=== PATIENT | female | born 1975 | race Caucasian/White ===

== ENCOUNTER → 2020-04-18 12:55 | Outpatient (CLI) | payer OTHER, SELFPAY ==
--- NOTE | ~2020-04-18 | MM_ITS ---
EXAMINATION: MM screening sukhwinder BI w joan HISTORY: Screening mammogram TECHNIQUE: Craniocaudal and mediolateral oblique 3-D tomosynthesis images were obtained and synthetic 2-D images were generated. CAD analysis was submitted and interpreted. COMPARISON: No prior mammogram is available for comparison at this institution. BREAST PARENCHYMAL COMPOSITION: There are scattered areas of fibroglandular density. FINDINGS: There is a cluster grouped microcalcifications in the posterior upper inner left breast. Di agnostic left mammogram with magnification views is recommended. Otherwise there is no evidence of suspicious mass, calcification, or architectural distortion to sugg est malignancy in either breast. IMPRESSION: 1. Cluster grouped microcalcifications in posterior upper inner left breast 2. Diagnostic left mammogram with magnification views is recommended. BI-RADS Category 0: Incomplete: Needs additional imaging evaluation. Reviewed, dictated and finalized at location A. NCIAL ADMINISTRATION OFFICER
== END ==
PROVIDERS: Visit Provider Nurse Practitioner
DX: Z12.31 Encounter for screening mammogram for malignant neoplasm of breast (principal); R92.8 Other abnormal and inconclusive findings on diagnostic imaging of breast
CPT/HCPCS: 77063; 77067

== ENCOUNTER → 2020-05-16 08:00 | Outpatient (CLI) | payer OTHER, SELFPAY ==
--- NOTE | ~2020-05-16 | MM_ITS ---
EXAMINATION: MM diagnostic mammo unilat LT HISTORY: Cluster of grouped microcalcifications in posterior upper inner left breast on 04/18/2020 scr eening mammogram TECHNIQUE: ML view. Magnification views in 3 projections.. CAD analysis was submitted and interpreted . COMPARISON: 04/18/2020 bilateral digital screening mammogram FINDINGS: A cluster grouped round benign microcalcifications is noted posteriorly in the upper inner quadrant of left breast. Occasional additional benign solitary calcifications. No malignant calcifica tion is evident. IMPRESSION: 1. No mammographic evidence of malignancy 2. Routine annual mammographic screening is recommended. BI-RADS Category 2: Benign finding(s). Reviewed, dictated and finalized at location A.
== END ==
PROVIDERS: Visit Provider Obstetrics & Gynecology Gynecology
DX: R92.8 Other abnormal and inconclusive findings on diagnostic imaging of breast (principal)
CPT/HCPCS: 77065

== ENCOUNTER 2022-01-20 08:15 | Emergency (ER) | payer BC, SELFPAY ==
--- NOTE | ~2022-01-20 | XR_ITS ---
EXAMINATION: XR knee RT min 4V DATE: 01/20/2022 08:38 INDICATION: Right knee pain. TECHNIQUE: 4 views of right knee were obtained. COMPARISON: None. FINDINGS: Bone alignment is normal. No fracture. There is mild tricompartmental osteoarthritis charac terized by tiny osteophytes. No joint space narrowing. No knee joint effusion. IMPRESSION: 1. Mild right knee osteoarthritis. Reviewed, dictated and finalized at location A. M INSTALLATION TECHNICIAN
--- NOTE | 2022-01-20 08:17 | ED.SKABFB ---
HPI - Skin/Abscess/Foreign Bdy General Chief complaint: Extremity Problem,Nontraumatic Stated complaint: KNOT UNDER R KNEE Time Seen by Provider: 01/20/22 08:17 Source: patient and RN notes reviewed History of Present Illness HPI narrative: Patient is a 46-year-old female presents to urgent care with complaints of a knot under the right knee. Patient states that she noticed on Wednesday and it has became more painful and tender to the touch for the last 24 hours. Patient states that it kept her up all night. Denies any injuries, or recent falls. Patient states that pain is exacerbated with stairs or any weight-bearing movements. Patient did take Advil and use ice to the area last night. No other acute complaints. No acute distress noted. Patient aware of the plan of care. Some parts of this dictation were generated by voice recognition software and may contain typographical and/or grammatical inaccuracies. Related Data Home Medications Medication Instructions Recorded Confirmed norethindrone 1.5 mg-ethinyl 1 tablet PO DAILY 01/20/22 01/20/22 estradiol 30 mcg(21)/iron 75 mg(7) tablet ( FE .07/07 (28)) Allergies Allergy/AdvReac Type Severity Reaction Status Date / Time No Known Allergies Allergy Unverified 01/20/22 08:24 Review of Systems Review of Systems: CONSTITUTIONAL: Denies fever, chills, or sweats. EYES: Denies visual changes, redness, or discharge. ENT: Denies rhinorrhea, congestion, sore throat, or otalgia. CARDIOVASCULAR: Denies chest pain, palpitations, or edema. RESPIRATORY: Denies cough or dyspnea. GASTROINTESTINAL: Denies abdominal pain, nausea, vomiting, or diarrhea. GENITOURINARY: Denies dysuria or hematuria. SKIN: Denies rash or itching. MUSCULOSKELETAL: Reports of a painful ?knot? under the right knee NEUROLOGIC: Denies headache, numbness, or weakness. All other systems reviewed are negative, except as documented in HPI. PMFSH Comments At the time of my signature, I reviewed and agree with the nursing past medical, surgical, social, and family history. There is no relevant family history pertinent to the patient complaint. Exam Narrative: GENERAL: This is a well-nourished, well-developed patient, in no apparent distress. HEAD: normocephalic, atraumatic. EYES: PERRL. Sclera clear/white. Vision is grossly intact. EARS: External ears normal NOSE: External nose normal with no obvious nasal discharge, nares without redness, no rhinorrhea. THROAT: Mucous membranes moist NECK: Neck supple SKIN: warm, intact with no suspicious lesions or rash, good texture and turgor. NEURO: awake, alert, and oriented to person, place and time. There were no obvious focal neurologic abnormalities. EXTREMITIES: Positive strong right pedal pulse with capillary refill less than 2 seconds. Approximately 2 cm firm nodule/soft tissue swelling noted to the tibial tuberosity region with moderate tenderness without ecchymosis or erythema. Pain exacerbated on weight-bearing and adduction/abduction of the right lower extremity Course Course Level of Care: Express Care Visit Vital Signs Vital signs: Vital Signs Temperature 99.3 F 01/20/22 08:21 Pulse Rate 82 01/20/22 08:21 Respiratory Rate 16 01/20/22 08:21 Blood Pressure 150/83 H 01/20/22 08:21 Pulse Oximetry 100 01/20/22 08:21 Oxygen Delivery Room Air 01/20/22 08:21 Temperature 99.3 F 01/20/22 08:25 Pulse Rate 82 01/20/22 08:25 Respiratory Rate 16 01/20/22 08:25 Blood Pressure 150/83 H 01/20/22 08:25 Pulse Oximetry 100 01/20/22 08:25 Oxygen Delivery Room Air 01/20/22 08:25 Reviewed- Patient is informed that they may have pre-hypertension or hypertension based on a blood pressure reading in the department. I recommend the patient call the primary care provider listed on their discharge instructions or a physician of their choice this week to arrange follow-up for further evaluation of possible pre-hypertension or hypert
[2022-01-20 08:21] VITALS: BP 150/83; PULSE 82; RESP 16; TEMP 37.4; O2SAT 100
[2022-01-20 08:25] VITALS: BP 150/83; PULSE 82; RESP 16; TEMP 37.4; O2SAT 100
== END 2022-01-20 09:25 | disposition home or self-care (01) ==
PROVIDERS: Emergency Provider Nurse Practitioner Family
DX: M17.11 Unilateral primary osteoarthritis, right knee (principal)
CPT/HCPCS: 73564; 99203; G0463

== ENCOUNTER 2024-05-15 15:07 | Emergency (ER) | payer OTHER, SELFPAY ==
[2024-05-15 15:18] VITALS: BP 146/95; PULSE 79; RESP 16; TEMP 37.1; O2SAT 99
--- NOTE | 2024-05-15 15:45 | ED.URI ---
HPI - URI/Sore Throat General Chief Complaint: Upper Respiratory Infection Stated Complaint: Sinus Infection Symptoms Time Seen by Provider: 05/15/24 15:45 Source: patient and RN notes reviewed Mode of arrival: ambulatory Limitations: no limitations History of Present Illness HPI Narrative: 48-year-old female presented for complaint of nasal congestion and sinus pressure, and cough worsening for 1 week. At the onset she had some body aches and fever which have improved. Denies shortness of breath, wheezing, nausea vomiting diarrhea, fevers or lethargy. Taking Tylenol and Flonase today per advice when she contacted her PCP. MD elicited complaint: cough Related Data Home Medications ?Medication ?Instructions ?Recorded ?Confirmed ?Last Taken ?Type norethindrone 1.5 mg-ethinyl 1 tablet PO DAILY 01/20/22 05/15/24 Unknown History estradiol 30 mcg(21)/iron 75 mg(7) tablet (Junel FE .07/07 (28)) Allergies Allergy/AdvReac Type Severity Reaction Status Date / Time No Known Allergies Allergy Verified 05/15/24 15:15 Review of Systems Review of Systems: per HPI [facility] Past Medical History Medical History ARYAN (generalized anxiety disorder) Family History Family History Father Hypertension Heart disease Bicuspid aortic valve Mother Asthma Hypertension Social History Social History Smoking status: Never smoker Alcohol intake: current Substance use: never Living arrangements: with family Occupation/Education: occupation Gender identity (if verbalized by the patient): Female Sexual Orientation (if Verbalized by the Patient): Straight or Heterosexual Spiritual care concerns: No Exam Narrative: GENERAL: well-appearing EYES: PERRLA, conjunctivae clear ENT: Mucous membranes moist. TM pearly atwood with dull light reflex bilaterally; no tragal tenderness. Oropharynx not erythematous without lesions or exudate, no drooling, no hoarseness, no trismus, uvula midline. No tripod positioning, muffled voice, soft palate or pharyngeal wall bulging CHEST: Clear to auscultation, breath sounds equal. HEART: Regular rate and rhythm. No murmur heard. SKIN: Warm, dry, no rash. NEURO: Alert and oriented x3. PSYCH: Normal mood and affect Course Course Emergency Course: Patient is aware of diagnosis, understands and agrees to treatment plan. Anticipatory guidance given. Patient agrees to follow-up as directed and is aware of reasons to seek care at the emergency department. Portions of this record may have been created with voice recognition software Level of Care: Express Care Visit Vital Signs Vital signs: Vital Signs Temperature 98.8 F 05/15/24 15:18 Pulse Rate 79 05/15/24 15:18 Respiratory Rate 16 05/15/24 15:18 Blood Pressure 146/95 H 05/15/24 15:18 Pulse Oximetry 99 05/15/24 15:18 Temperature 98.8 F 05/15/24 15:18 Pulse Rate 79 05/15/24 15:18 Respiratory Rate 16 05/15/24 15:18 Blood Pressure 146/95 H 05/15/24 15:18 Pulse Oximetry 99 05/15/24 15:18 reviewed MDM - URI/Sore Throat MDM Narrative Medical decision making narrative: Discussed physical exam findings consistent with sinusitis. Shared decision making, deferred viral testing. Advised supportive measures and signs/symptoms to go to the ER. Pt is appropriate for outpt treatment and f/u. Differential Diagnosis Differential diagnosis: Likely upper respiratory infection, sinusitis and viral infection Discharge Plan Discharge Clinical Impression: Upper respiratory infection Patient Disposition: Home Condition: Stable Instructions: Antibiotic Form, Sinusitis (ED) Additional Instructions: Take antibiotic as directed Recommendations: Flonase spray and Zyrtec (or Claritin/Damari) over the counter Cough syrup may cause drowsiness; avoid driving or take it at night time. Tylenol 1000mg every 8 hours as needed for pain Rest, fluids, and increase humidity of the air at home. Follow up with your primary care provider in 1 week. Go to the ER for worsening symptoms or concerns. Patient Language: Citizen Of [place] Prescriptions: New amoxicillin-pot clavulanate 875-125 mg tablet 1 tablet PO Q12H 7 Days Qty: 14 0RF No Action norethindrone-e.estradiol-iron [ 1.5/30 (28)] 1.5 mg-30 mcg (21)/75 mg (7) tablet 1 tablet PO DAILY Follow-up/Referrals: PHYSICIAN,SLUBBER TENDER [Primary Care Provider] - Time of Disposition: 15:50
== END 2024-05-15 15:55 | disposition home or self-care (01) ==
PROVIDERS: Emergency Provider Nurse Practitioner Family
DX: J06.9 Acute upper respiratory infection, unspecified (principal)
CPT/HCPCS: 99213; G0463